=== PATIENT | male | born 1990 | race Caucasian/White ===

== ENCOUNTER → 2017-09-23 | Outpatient (CLI) | payer OTHER, MEDICAID ==
[2017-09-23 18:06] LABS: ALBUMIN 4.2 GM/DL (3.2-5.2); ALBUMIN/GLOBULIN RATIO 1.31 (1.00-1.93); ALKALINE PHOSPHATASE 55 U/L (45-117); ALT/SGPT 23 U/L (12-78); ANION GAP 8 MEQ/L (8-16); AST/SGOT 6 U/L (7-37); BILIRUBIN,TOTAL 0.7 MG/DL (0.2-1.0); BLOOD UREA NITROGEN 18 MG/DL (7-18); CALCIUM LEVEL 8.8 MG/DL (8.5-10.1); CARBON DIOXIDE LEVEL 29 MEQ/L (21-32); CHLORIDE LEVEL 104 MEQ/L (98-107); CHOLESTEROL LEVEL 138 MG/DL (<200); CHOLESTEROL RISK RATIO 5.307 (<5); CREATININE FOR GFR 0.94 MG/DL (0.70-1.30); GLOMERULAR FILTRATION RATE > 60.0 (>60); GLUCOSE, FASTING 84 MG/DL (70-100); HDL CHOLESTEROL 26 MG/DL (>40); LDL CHOLESTEROL 67.2 MG/DL (<100); NON-HDL-C 112 MG/DL; POTASSIUM SERUM 4.6 MEQ/L (3.5-5.1); SODIUM LEVEL 141 MEQ/L (136-145); TOTAL PROTEIN 7.4 GM/DL (6.4-8.2); TRIGLYCERIDES LEVEL 224 MG/DL (<150); VALPROIC ACID (DEPAKOTE) 78.1 UG/ML (50.0-100.0)
[2017-09-23 18:10] LABS: ESTIMATED AVERAGE GLUCOSE 91 MG/DL (60-110); HEMOGLOBIN A1c 4.8 %
== END ==
LOC: M WUC 08:43
DX: F28 Other psychotic disorder not due to a substance or known physiological condition (principal)
CPT/HCPCS: 80164

== ENCOUNTER 2017-10-27 12:36 | Outpatient (CLI) | payer OTHER, MEDICAID | END 2017-10-30 | LOC: M SLEEP HO 12:36 | DX: G47.10 Hypersomnia, unspecified (principal) | CPT/HCPCS: G0399 ==

== ENCOUNTER → 2018-06-18 | Outpatient (REF) | payer MEDICAID ==
[2018-06-18 17:21] LABS: BASO % 0.4 % (0.0-1.0); EOS # 0.1 10^3/uL (0.0-0.50); EOS % 1.3 % (0.0-3.0); HEMATOCRIT 42.9 % (42.0-52.0); HEMOGLOBIN 15.1 g/dl (13.5-17.5); LYMPH # 2.1 10^3/uL (1.5-6.5); LYMPH % 40.5 % (24.0-44.0); MEAN CORPUSCULAR HEMOGLOBIN 29.2 pg (27.0-33.0); MEAN CORPUSCULAR HGB CONC 35.2 g/dl (32.0-36.5); MEAN CORPUSCULAR VOLUME 82.8 fl (80.0-96.0); MONO # 0.4 10^3/uL (0.0-0.8); NEUTROPHILS # 2.6 10^3/uL (1.8-7.7); NEUTROPHILS % 49.6 % (36.0-66.0); PLATELET COUNT, AUTOMATED 173 10^3/uL (150-450); RED BLOOD COUNT 5.18 10^6/uL (4.30-6.10); WHITE BLOOD COUNT 5.3 10^3/uL (4.0-10.0)
[2018-06-18 17:46] LABS: FREE T4 1.04 NG/DL (0.76-1.46); THYROID STIMULATING HORMONE 1.1 uIU/ML (0.358-3.740)
[2018-06-18 17:47] LABS: TOTAL 25(OH) VITAMIN D 23.7 NG/ML (30.0-100.0)
== END ==
LOC: M SFHCPLAZ 14:34
PROVIDERS: ATTEND Family Medicine
DX: R53.82 Chronic fatigue, unspecified (principal)

== ENCOUNTER → 2018-07-12 | Outpatient (CLI) | payer MEDICAID ==
--- NOTE | 2018-07-17 10:25 | SLEEPCENT ---
DATE OF STUDY: 07/12/2018 ORDERED BY: GARIMA Pryor Nocturnal polysomnography was performed for evaluation of sleep physiology in this patient with a history of excessive somnolence and nonrestorative sleep. 8 hours and 10 minutes of data were reviewed. There were 421 minutes of sleep identified. Sleep latency was prolonged at 42 minutes. REM latency was mildly prolonged at 119 minutes. Sleep architecture was good with three REM cycles noted. Overall sleep efficiency was 87%. The electrocardiogram showed sinus rhythm throughout with an average heart rate of 46 beats per minute. Rate ranged 40-70 beats per minute. EEG showed essentially normal waveforms for awake and sleep. No focal events were seen. There were only four obstructive respiratory events identified of 10 seconds in duration or greater for an apnea-hypopnea index of 0.6. Snoring was noted and respiratory related arousals occurred 1.6 times per hour. Limb leads were quiet and oxygen saturations 90% plus. IMPRESSION: Normal nocturnal polysomnography with snoring. cc: Nikko Marie DO
== END ==
LOC: M SLEEP 20:21
PROVIDERS: ATTEND Nurse Practitioner Family
DX: R06.83 Snoring (principal)

== ENCOUNTER → 2018-07-24 | Outpatient (CLI) | payer MEDICAID | LOC: M WUC 09:27 | PROVIDERS: ATTEND Student in an Organized Health Care Education/Training Program | DX: Z13.21 Encounter for screening for nutritional disorder (principal) ==

== ENCOUNTER 2018-07-31 17:03 | Inpatient (IN) | payer MEDICAID ==
[~2018-07-31] VITALS: Ht 166.4 cm; Wt 81.8 kg
[2018-07-31] MEDS ORDERED: DEBR6.5S4 AS (17:36)
[2018-07-31] MEDS ORDERED: PRAZ2CAP PO (17:36)
[2018-07-31] MEDS ORDERED: LISI10TA4 PO (17:36)
[2018-07-31] MEDS ORDERED: RISP4TAB33 PO (17:36)
[2018-07-31] MEDS ORDERED: [UNRECOGNIZED DRUG - OTHER] (17:36)
[2018-07-31] MEDS ORDERED: D 1010004 PO (17:36)
[2018-07-31] MEDS ORDERED: DEPA250T32 PO (17:36)
[2018-07-31] MEDS ORDERED: PROZ20CA11 PO (17:54)
[2018-07-31 18:05] LABS: HEMATOCRIT 42.7 % (42.0-52.0); MEAN CORPUSCULAR HEMOGLOBIN 29.1 pg (27.0-33.0); MEAN CORPUSCULAR HGB CONC 35.1 g/dl (32.0-36.5); MEAN CORPUSCULAR VOLUME 82.9 fl (80.0-96.0); PLATELET COUNT, AUTOMATED 171 10^3/uL (150-450); RED BLOOD COUNT 5.15 10^6/uL (4.30-6.10); WHITE BLOOD COUNT 6.9 10^3/uL (4.0-10.0)
[2018-07-31 18:19] LABS: AMPHETAMINES LEVEL URINE NEGATIVE (NEGATIVE); BARBITURATES URINE NEGATIVE (NEGATIVE); BENZODIAZEPINES URINE NEGATIVE (NEGATIVE); CANNABINOIDS URINE NEGATIVE (NEGATIVE); COCAINE METABOLITE URINE NEGATIVE (NEGATIVE); METHADONE URINE NEGATIVE (NEGATIVE); OPIATES URINE NEGATIVE (NEGATIVE); PHENCYCLIDINE URINE NEGATIVE (NEGATIVE)
--- NOTE | 2018-07-31 18:20 | REP ---
Chest x-ray: Two views. History: Chest pain. Findings: A right-sided ventriculoperitoneal shunt catheter is seen coursing over the right anterior chest. The lungs are well inflated and clear. The pleural angles are sharp. Heart size is normal. No bony abnormalities seen. Impression: No active disease. Right STOGY ROLLER shunt tube seen. Electronically Signed by Korey Pandey MD 07/31/2018 06:12 P
[2018-07-31 18:31] LABS: ALBUMIN 4.4 GM/DL (3.2-5.2); ALT/SGPT 23 U/L (12-78); BILIRUBIN,DIRECT 0.2 MG/DL (0.0-0.2); BILIRUBIN,TOTAL 0.8 MG/DL (0.2-1.0); BLOOD UREA NITROGEN 19 MG/DL (7-18); CALCIUM LEVEL 8.8 MG/DL (8.5-10.1); CARBON DIOXIDE LEVEL 26 MEQ/L (21-32); CHLORIDE LEVEL 104 MEQ/L (98-107); CREATININE FOR GFR 1.01 MG/DL (0.70-1.30); ETHYL ALCOHOL (ETHANOL) < 0.003 % (0.000-0.010); GLOMERULAR FILTRATION RATE > 60.0 (>60); GLUCOSE, FASTING 86 MG/DL (70-100); SALICYLATE LEVEL < 1.7 MG/DL (5.0-30.0); SODIUM LEVEL 138 MEQ/L (136-145); TOTAL PROTEIN 7.1 GM/DL (6.4-8.2); VALPROIC ACID (DEPAKOTE) 41.5 UG/ML (50.0-100.0)
[2018-07-31 18:32] LABS: ACETAMINOPHEN LEVEL < 2.0 UG/ML (10.0-30.0)
--- NOTE | 2018-07-31 19:57 | ECGEPIP ---
Stationary ECG Study [facility] - ED Test Date: 2018-07-31 Pat Name: SUKHWINDER CALVILLO Department: Room: - Gender: M Water Plumber: : 1990 Requested By: ROBEL Rhodes Order Number: [id number] Reading MD: Emmanuel Cedillo Measurements Intervals [place] Rate: 62 P: 48 VT: 144 QRS: 59 QRSD: 89 T: 27 QT: 377 QTc: 384 Interpretive Statements SINUS RHYTHM Comparison tracing not on file Electronically Signed On 07-31-2018 19:57:37 EDT by Emmanuel Cedillo
[2018-07-31] MEDS ORDERED: DEPA1TAB3 PO (20:44)
[2018-07-31] MEDS ORDERED: VITS42.53 TOP (20:44)
[2018-07-31] MEDS ORDERED: ACETAMINOPHEN TAB 650MG DOSE (2X325MG) PO PRN (20:45)
[2018-07-31] MEDS ORDERED: MOM 30ML SUSPENSION UDC PO PRN (20:45)
[2018-07-31] MEDS ORDERED: traZODone 50 MG TAB PO PRN (20:45)
[2018-07-31] MEDS ORDERED: MAALOX 30 ML SUSP *UDC PO PRN (20:45)
[2018-07-31] MEDS ORDERED: hydrOXYzine 25 MG TAB PO PRN (20:45)
[2018-07-31] MEDS ORDERED: DIVALPROEX 250MG *ER* TAB PO SCH (21:00)
[2018-07-31 22:15] VITALS: BP 113/78
[2018-08-01 06:59] VITALS: BP 108/66
[2018-08-01] MEDS ORDERED: DIVALPROEX 250 MG TAB PO SCH (09:00)
--- NOTE | 2018-08-01 11:30 | HPEPDOC ---
General Date of Admission July 31, 2018 at 20:36 Primary Care Physician: KRISTINE OBRIEN DO Attending Physician: JILLIAN MARQUEZ MD Chief Complaint The patient is a 27-year-old male admitted with a reason for visit of Unspecified Depressive Disorder and suicidality. Source: Patient, EMS notes reviewed Exam Limitations: Mild cognitive slowing History of Present Illness Patient was seen in a medical appointment in the office on 07/31/18 and complained of increased depression without hope for resolution. Patient disclosed that he did demonstrate some SI. He was evaluated by social media campaign manager in the office who recommended the patient presented to the emergency department for further evaluation. Patient states that he has suicidal ideation with a plan to have somewhat hard to tie him and leave him to . He also Has HI toward his material handling warehouse supervisor with the plan to slit her throat. Patient does have a history of prior suicidal attempts when he was in middle school. Auditory hallucinations reported was instructed patient to kill himself and) kill others. Patient admitted to [facility] under the care of Dr. Valenzuela for further evaluation and management. Home Medications Scheduled Cholecalciferol (Vitamin D3) (Vitamin D3) 1,000 Unit Capsule, 1,000 UNIT PO DAILY, (Reported) Divalproex Sodium (Depakote) 250 Mg Tablet.dr, 250 MG PO QHS, (Reported) TAKE IN ADDITION TO 500MG TO EQUAL 750 Divalproex Sodium (Depakote) 500 Mg Tablet.dr, 500 MG PO QHS, (Reported) IN ADDITION TO 250MG TABLET TO EQUAL 750MG Fluoxetine HCl (Prozac) 20 Mg Capsule, 20 MG PO DAILY, (Reported) Lisinopril (Lisinopril) 10 Mg Tablet, 10 MG PO DAILY, (Reported) Prazosin Hcl (Prazosin HCl) 2 Mg Capsule, 2 MG PO QHS, (Reported) Risperidone (Risperdal) 4 Mg Tablet, 8 MG PO QHS, (Reported) Vits A and D/White Pet/Lanolin (A and D Ointment) 42.5 Gm Oint...g., 1 APLCT TOP DAILY, (Reported) APPLIES TO BUTTOCKS Allergies Coded Allergies: meperidine (Verified Allergy, Intermediate, hives, 07/31/18) morphine (Verified Allergy, Intermediate, hives, 07/31/18) Past Medical History Medical History Cerebral palsy with a ERISA ATTORNEY shunt and frontal lobe brain bilateral AFOs 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 Review of Systems Constitutional: Denies: Chills, Fever, Malaise, Weakness, Fatigue Eyes: Reports: Vision change (Utilizes reading glasses); Denies: Pain ENT: Denies: Head Aches, Ear Pain, Dysphagia, Sore Throat Skin: Denies: Rash, Lesions Pulmonary: Denies: Dyspnea, Cough, Pleuritic Chest Pain Cardiovascular: Denies: Chest Pain, Palpitations, Edema Gastrointestinal: Denies: Nausea, Vomiting, Abdominal Pain, Diarrhea, Co nstipation Genitourinary: Denies: Dysuria, Frequency, Incontinence Endocrine: Denies: Polydipsia, Polyphagia Musculoskeletal: Denies: Neck Pain, Back Pain, Shoulder Pain, Arm Pain, Hand Pain, Leg Pain, Foot Pain, Joint Pain Neurological: Denies: Weakness, Numbness Psych: Denies: Mood Normal Physical Examination General Exam: Positive: Alert, Cooperative, No Acute Distress Eye Exam: Positive: PERRLA, EOMI ENT Exam: Positive: Atraumatic, Mucous membr. moist/pink, Pharynx Normal Neck Exam: Positive: Supple; Negative: JVD, thyromegaly Chest Exam: Positive: Clear to auscultation, Normal air movement Heart Exam: Positive: Rate Normal, Regular Rhythm Abdomen Exam: Positive: Normal bowel sounds, Soft; Negative: Tenderness, Mass Extremity Exam: Negative: Clubbing, Cyanosis Skin Exam: Negative: Rash Neuro Exam: Positive: Normal Speech Psych Exam: Positive: Oriented x 3 Vital Signs Vital Signs Date Time Temp Pulse Resp B/P (MAP) Pulse Ox O2 Delivery O2 Flow Rate FiO2 08/01/18 06:59 98.0 61 14 108/66 (80) 07/31/18 22:15 96 Laboratory Data Labs 24H Laboratory Tests 2 07/31/18 17:45: Nucleated Red Blood Cells % (auto) 0.0, Anion Gap 8, Glomerular Filtration Rate > 60.0, Calcium Level 8.8, Aspartate Amino Transf (AST/SGOT) 10, Alanine Aminotransferase (ALT/SGPT) 23, Alkaline Phosphatase 41L, Total Bilirubin 0.8, Direct Bilirubin 0.2, Total Protein 7.1, Albumin 4.4, Albumin/Globulin Ratio 1.63, Thyroid Stimulating Hormone (TSH) 0.820, Salicylates Level < 1.7L, Urine Amphetamines Screen NEGATIVE, Urine Benzodiazepines Screen NEGATIVE, Urine Opiates Screen NEGATIVE, Urine Methadone Screen NEGATIVE, Acetaminophen Level < 2.0L, Urine Barbiturates Screen NEGATIVE, Valproic Acid (Depakene) Level 41.5L, Urine Phencyclidine Screen NEGATIVE, Urine Cocaine Metabolite Screen NEGATIVE, Urine Cannabinoids Screen NEGATIVE, Ethyl Alcohol Level < 0.003 CBC/BMP Laboratory Tests 07/31/18 17:45 Red Blood Count 5.15, Mean Corpuscular Volume 82.9, Mean Corpuscular Hemoglobin 29.1, Mean Corpuscular Hemoglobin Concent 35.1, Red Cell Distribution Width 12.0 Assessment/Plan Patient is a 27 year old male, history of cerebral palsy, resident of [facility], who presented to the ED with increasing SI with plan, HI and AH. Patient admitted to [facility] for further evaluation and management. Plan Plan Depression with HI/SI -Managed per psychiatry History of Head aches - Tylenol 650 mg PRN Reflux -Mylanta PRN Constipation -Magnesium Hydroxide PRN Attending Note Attending Note I personally performed a history and physical examination of the patient and discussed his management with the resident. I reviewed the resident's note and agree with the documented findings and plan of care. JOSÉ MIGUEL CRANE DO August 01, 2018 11:30 JILLIAN MARQUEZ MD August 02, 2018 13:14
--- NOTE | 2018-08-01 12:26 | MHHPEPDOC ---
General Date Of Admission: July 31, 2018 Legal Status: 9.39 Chief Complaint "I want to be hog tied and left for ." History of Present Illness HISTORY OF THE PRESENT ILLNESS: Patient is a 27 -year-old , male, with a history of bipolar d/o with psychosis and cerebral palsy who was sent to ED after seen by PCP and SW for med appt endorsing depression and SI with plan to be "hog tied and left for ." Pt also endorsed this when in ED to staff ([facility] staff present) and also that he had HI toward his warehouse loader stating he wanted to slit her throat. Per ED, [facility] staff told them that a staff member at [facility] was recently fired after telling the patient he needed to be hog tied. Pt also endorse in the ED AH to kill himself and rape/kill others. Per ED, indicated that he wanted out of [facility] due to lack of freedom and b/c he wants have sex with the staff. [facility] staff reported to ED that pt has been compliant on his medications although depakote level low in ED at 41.5. Psychiatric Review of Systems Depression (2 or more weeks): depressed mood, insomnia/hypersomnia (insomnia), feelings of worthlesness, difficulty concentrating, suicidal thoughts Kylah (4 or more days of): denies Psychosis: auditory hallucination (command in nature), delusions PTSD: denies Anxiety: situational anxiety, stressor related anxiety Anxiety/ 6 months or more of: restlessness, keyed up, difficulty concentrating, irritability, sleep disturbance Past Psychiatric History Previous Psychiatric Diagnosis: bipolar d/o with psychosis Previous Psychiatric Admissions: [facility] in past for psychosis Suicide Attempts: one in middle school, pt unable to remember what occurred Psychiatric Follow-up: [facility] Psychiatric medications: risperidone, depakote, prazosin, prozac Past Medical History Medical Problems spastic bladder, incontinence, cerebral palsy Head Injury: Yes Seizures: Yes (cerebral palsy) Hospitalizations: Yes Surgeries: Yes (OPTICIAN APPRENTICE shunt) Family Medical/Psychiatric HX Medical Problems noncontributory Psychiatric Disorders: No Addiction: No Suicide Attemps/Completions: No Addiction History denies Social History Childhood: Born and raised [place], 2 parent home. Speaks to parents regularly on the phone and their supportive Abuse/Trauma:denies Current Living Situation: [facility] Education: high school grad in special education Employment: disability Social Support: [facility] staff and parents Legal: denies Marital: single, never , no kids Mental Status Examination General Appearance: well groomed, appears stated age, hospital scubs/clothing, other (laying in bed comfortably, horizontal b/l eye nystagmus) Build: average Demeanor: average, other (pleasant, slightly childlike) Eye Contact: other (horizontal b/l eye nystagmus) Activity: average Behavior: cooperative Speech: clear, spontaneous, reg/rate,rhythm,volume Mood: depressed Mood ok Affect: constricted, appropriate, congruent Thought Process: logical/linear, concrete, depressed, other (negative cognitive distortions) Thought Content (Delusions): denies SI, HI, AVH Thought Content (Other): none reported Thought Content (Aggressive): none reported Perception (Hallucinations): none reported Cognition (Impairment of): none reported Cognition(Intelligence Est.): borderline Oriented: Awake, Alert, Oriented times three Insight: fair Judgment: Fair Psychosis: Denies Diagnoses bipolar 1 d/o mre depressed with psychosis Cerebral Palsy A-FIB/CHADSVASC A-FIB History Current/History of A-Fib/PAF?: No Current Oral Anticoagulant The: No Treatment Treatment ordered: NONE Reason Anticoagulant not given: Not indicated/[id number] Assessment Pt seen in his room due to difficulty ambulating secondary to CP and states he's been having SI with desire to be hog tied and left for after [facility] staff told him he should be. States it isn't as bad today. States he isn't as depressed. Able to make a joke asking for a Whopper when asked if he needed anything else and laughed appropriately. Denies AH or CAH and states that it was more a thought he had in his head rather than a voice out of anger with the staff member that is now fired. Denies HI today. States his medications are beneficial and he's agreeable to increasing his prozac and depakote for mood. Hopes to be able to live with his parents upon d/c and advised him that they'd have to agree to that if that were to happen. Hopes they visit. Will see PT today to evaluated his ability to ambulate and provide him with a wheel chair as he would like to go to the groups and the lounge. Admits he needs help transferring from a wheelchair to the toilet when asked. Feels safe here. Initial Treatment Plan 1. Patient was admitted on a 9.39 status. 2. Complete history was obtained. 3. With patients permission, family will be contacted and database will be expanded. 4. Patients medication regimen will be reviewed and changed accordingly. 5. Patient will be provided with protected environment. 6. Patient will be treated with individual, group, and milieu therapies. 7. Patient will receive supportive psych-education. 8. Discharge planning will commence immediately. 9. Outpatient follow-up treatment will be strongly recommended. 10. The initial treatment plan will focus initially on: * Depression. * Risk for suicide. * Substance abuse. 11. restart risperidone 8mg qhs and prazosin 2mg qhs. Increase prozac to 40mg daily and depakote to 1000mg qhs ESTIMATED LENGTH OF STAY: 5-7 DAYS. TIME SPENT COUNSELING AND COORDINATING INITIAL CARE: 60 minutes. Vital Signs Vital Signs Date Time Temp Pulse Resp B/P (MAP) Pulse Ox O2 Delivery O2 Flow Rate FiO2 08/01/18 06:59 98.0 61 14 108/66 (80) 07/31/18 22:15 96 Laboratory Data 24H Labs Laboratory Tests 2 07/31/18 17:45: Nucleated Red Blood Cells % (auto) 0.0, Anion Gap 8, Glomerular Filtration Rate > 60.0, Calcium Level 8.8, Aspartate Amino Transf (AST/SGOT) 10, Alanine Aminotransferase (ALT/SGPT) 23, Alkaline Phosphatase 41L, Total Bilirubin 0.8, Direct Bilirubin 0.2, Total Protein 7.1, Albumin 4.4, Albumin/Globulin Ratio 1.63, Thyroid Stimulating Hormone (TSH) 0.820, Salicylates Level < 1.7L, Urine Amphetamines Screen NEGATIVE, Urine Benzodiazepines Screen NEGATIVE, Urine Opiates Screen NEGATIVE, Urine Methadone Screen NEGATIVE, Acetaminophen Level < 2.0L, Urine Barbiturates Screen NEGATIVE, Valproic Acid (Depakene) Level 41.5L, Urine Phencyclidine Screen NEGATIVE, Urine Cocaine Metabolite Screen NEGATIVE, Urine Cannabinoids Screen NEGATIVE, Ethyl Alcohol Level < 0.003 CBC/BMP Laboratory Tests 07/31/18 17:45 Red Blood Count 5.15, Mean Corpuscular Volume 82.9, Mean Corpuscular Hemoglobin 29.1, Mean Corpuscular Hemoglobin Concent 35.1, Red Cell Distribution Width 12.0 Medications Scheduled Cholecalciferol (Vitamin D3) (Vitamin D3) 1,000 Unit Capsule, 1,000 UNIT PO DAILY, (Reported) Divalproex Sodium (Depakote) 250 Mg Tablet.dr, 250 MG PO QHS, (Reported) TAKE IN ADDITION TO 500MG TO EQUAL 750 Divalproex Sodium (Depakote) 500 Mg Tablet.dr, 500 MG PO QHS, (Reported) IN ADDITION TO 250MG TABLET TO EQUAL 750MG Fluoxetine HCl (Prozac) 20 Mg Capsule, 20 MG PO DAILY, (Reported) Lisinopril (Lisinopril) 10 Mg Tablet, 10 MG PO DAILY, (Reported) Prazosin Hcl (Prazosin HCl) 2 Mg Capsule, 2 MG PO QHS, (Reported) Risperidone (Risperdal) 4 Mg Tablet, 8 MG PO QHS, (Reported) Vits A and D/White Pet/Lanolin (A and D Ointment) 42.5 Gm Oint...g., 1 APLCT TOP DAILY, (Reported) APPLIES TO BUTTOCKS Allergies Coded Allergies: meperidine (Verified Allergy, Intermediate, hives, 07/31/18) morphine (Verified Allergy, Intermediate, hives, 07/31/18) JOHANNA JANE DO August 01, 2018 12:26 pm
[2018-08-01 12:59] VITALS: BP 108/66
[2018-08-01] MEDS ORDERED: FLUoxetine 20 MG CAP PO ONE (13:00)
[2018-08-01] MEDS: VITAMIN D 1,000 INTERNATIONAL UNITS TABLET PO SCH (14:07)
[2018-08-01] MEDS: LISINOPRIL 10 MG TAB PO SCH (14:15)
[2018-08-01] MEDS: VITAMIN A & D OINTMENT 60 GM TOP SCH (17:40)
[2018-08-01 18:37] VITALS: BP 133/78
[2018-08-01] MEDS: risperiDONE 2 MG TAB PO SCH (22:31)
[2018-08-01] MEDS: PRAZOSIN 1 MG CAP PO SCH (22:31)
[2018-08-01] MEDS: DIVALPROEX 500 MG TAB PO SCH (22:31)
[2018-08-02 06:36] VITALS: BP 123/60
[2018-08-02] MEDS: VITAMIN A & D OINTMENT 60 GM TOP SCH (09:00)
--- NOTE | 2018-08-02 09:30 | MHIPNPDOC ---
[facility] Progress Note Progress Note DATE OF SERVICE: 08/02/18 HISTORY: Patient is a 27 -year-old , male, with a history of bipolar d/o with psychosis and cerebral palsy who was sent to ED after seen by PCP and SW for med appt endorsing depression and SI with plan to be "hog tied and left for ." Pt also endorsed this when in ED to staff ([facility] staff present) and also that he had HI toward his vat house supervisor stating he wanted to slit her throat. Per ED, [facility] staff told them that a staff member at [facility] was recently fired after telling the patient he needed to be hog tied. Pt also endorse in the ED AH to kill himself and rape/kill others. Per ED, indicated that he wanted out of [facility] due to lack of freedom and b/c he wants have sex with the staff. [facility] staff reported to ED that pt has been compliant on his medications although depakote level low in ED at 41.5. VITAL SIGNS: See below. NEW TEST RESULTS: See below. CURRENT MEDICATIONS: See below. MENTAL STATUS EXAMINATION: General Appearance: well groomed, appears stated age, hospital scrubs/clothing, other (laying in bed comfortably, horizontal b/l eye nystagmus) Build: average Demeanor: average, other (pleasant, cognitively 13-14y/o) Eye Contact: other (horizontal b/l eye nystagmus) Activity: average Behavior: cooperative Speech: clear, spontaneous, reg/rate,rhythm,volume Mood: less depressed Mood ok Affect: less constricted, appropriate, congruent Thought Process: logical/linear, concrete, improved negative cognitive distortions, future oriented toward wanting his own apt thru [facility] Thought Content (Delusions): denies SI, HI, AVH, sexually preoccupied similar to young teenage boy Thought Content (Other): none reported Thought Content (Aggressive): none reported Perception (Hallucinations): none reported Cognition (Impairment of): none reported Cognition(Intelligence Est.): borderline Oriented: Awake, Alert, Oriented times three Insight: limited Judgment: limited Psychosis: Denies DIAGNOSES: bipolar 1 d/o mre depressed with psychosis Intellectual Disability - mild Cerebral Palsy ASSESSMENT:Pt seen in his room due to difficulty ambulating secondary to CP and states doing better today as denies SI/HI, hallucinations, command hallucinations. Endorses some fatigue this am after depakote increased last night and will monitor for improvement as pt starts to tolerate it better. States he very depressed. He's future oriented as asked for his own apt when he returns to [facility] and advised that he must work that out with them and it may not happen right away. States he'd be ok with waiting. per nursing staff, pt is sexually preoccupied most like that of a young teenage boy and appears cognit ively to function between 13-14y/o. Is using his wheelchair he was provided to attend groups and encouraged to do so again today. Denies SI/HI, hallucinations, delusions. Feels safe here. MANAGEMENT PLAN: continue plan Medications: risperidone 8mg qhs prazosin 2mg qhs prozac to 40mg daily depakote to 1000mg qhs TIME SPENT: 30 minutes. Vital Signs Vital Signs Date Time Temp Pulse Resp B/P (MAP) Pulse Ox O2 Delivery O2 Flow Rate FiO2 08/02/18 06:36 98.4 65 14 123/60 (81) 07/31/18 22:15 96 Current Medications Current Medications Acetaminophen (Tylenol Tab) 650 mg Q6HP PRN PO HEADACHE or DISCOMFORT; Start 07/31/18 at 20:45 Al Hydrox/Mg Hydrox/Simethicone (Mylanta) 30 ml Q4HP PRN PO HEARTBURN/INDIGESTION; Start 07/31/18 at 20:45 Divalproex Sodium (Depakote Er) 750 mg DAILY@2100 PO Last administered on 07/31/18at 23:13; Start 07/31/18 at 21:00; Stop 08/01/18 at 12:28; Status DC Divalproex Sodium (Depakote) 750 mg DAILY PO ; Start 08/01/18 at 09:00; Status Cancel Divalproex Sodium (Depakote) 1,000 mg QHS PO Last administered on 08/01/18at 22:31; Start 08/01/18 at 21:00 Fluoxetine HCl (PROzac) 40 mg DAILY PO ; Start 08/02/18 at 09:00 Home Med (Med Rec Complete!) ASDIRECTED XX ; Start 07/31/18 at 20:45; Stop 07/31/18 at 20:47; Status DC Hydroxyzine HCl (Atarax) 25 mg Q6HP PRN PO Anxiety; Start 07/31/18 at 20:45 Lisinopril (Prinivil) 10 mg DAILY PO Last administered on 08/01/18at 14:15; Start 08/01/18 at 09:00 Magnesium Hydroxide (Milk Of Magnesia) 30 ml DAILYPRN PRN PO CONSTIPATION; Start 07/31/18 at 20:45 Prazosin HCl (Minipress) 2 mg QHS PO Last administered on 08/01/18at 22:31; Start 08/01/18 at 21:00 Risperidone (RisperDAL) 8 mg QHS PO Last administered on 08/01/18at 22:31; Start 08/01/18 at 21:00 Trazodone HCl (Desyrel) 50 mg QHSP PRN PO INSOMNIA; Start 07/31/18 at 20:45 Vitamin A/Vitamin D (Vitamin A & D Ointment) 1 dose DAILY TOP ; Start 08/01/18 at 09:00 Vitamin D (Vitamin D) 1,000 units DAILY PO Last administered on 08/01/18at 14:07; Start 08/01/18 at 09:00 Allergies Coded Allergies: meperidine (Verified Allergy, Intermediate, hives, 07/31/18) morphine (Verified Allergy, Intermediate, hives, 07/31/18) A-FIB/CHADSVASC A-FIB History Current/History of A-Fib/PAF?: No Current Oral Anticoagulant The: No Treatment Treatment ordered: NONE Reason Anticoagulant not given: Not indicated/[id number] JOHANNA JANE DO August 02, 2018 9:30 am
[2018-08-02] MEDS: LISINOPRIL 10 MG TAB PO SCH (09:56)
[2018-08-02] MEDS: FLUoxetine 20 MG CAP PO SCH (09:56)
[2018-08-02] MEDS: VITAMIN D 1,000 INTERNATIONAL UNITS TABLET PO SCH (09:56)
[2018-08-02 18:00] VITALS: BP 144/73
[2018-08-02] MEDS: DIVALPROEX 500 MG TAB PO SCH (21:32)
[2018-08-02] MEDS: risperiDONE 2 MG TAB PO SCH (21:32)
[2018-08-02] MEDS: PRAZOSIN 1 MG CAP PO SCH (21:35)
[2018-08-03 06:46] VITALS: BP 141/76
[2018-08-03] MEDS ORDERED: FLUO20CA19 PO (08:44)
[2018-08-03] MEDS ORDERED: PRAZ2CAP PO (08:44)
[2018-08-03] MEDS ORDERED: RISP4TAB33 PO (08:44)
[2018-08-03] MEDS ORDERED: DEPA1TAB3 PO (08:44)
--- NOTE | 2018-08-03 08:45 | MHDSPDOC ---
[facility] Discharge Summary Discharge Summary DATE OF ADMISSION: July 31, 2018 at 8:36 pm DATE OF DISCHARGE: August 03, 2018 DISCHARGE DIAGNOSES: bipolar 1 d/o mre depressed with psychosis Intellectual Disability - mild Cerebral Palsy REASON FOR ADMISSION: Patient is a 27 -year-old , male, with a history of bipolar d/o with psychosis and cerebral palsy who was sent to ED after seen by PCP and SW for med appt endorsing depression and SI with plan to be "hog tied and left for ." Pt also endorsed this when in ED to staff ([facility] staff present) and also that he had HI toward his senior data warehouse developer stating he wanted to slit her throat. Per ED, [facility] staff told them that a staff member at [facility] was recently fired after telling the patient he needed to be hog tied. Pt also endorse in the ED AH to kill himself and rape/kill others. Per ED, indicated that he wanted out of [facility] due to lack of freedom and b/c he wants have sex with the staff. [facility] staff reported to ED that pt has been compliant on his medications although depakote level low in ED at 41.5. CONSULTANTS INVOLVED: none TREATMENT AND PROGRESS ON THE UNIT : Pt was admitted to [facility], seen for psychiatric assessment and restarted on his outpatient medication Depakote in creased to 1000mg nightly (depakote level low on admission), risperidone 8mg nightly, prozac increased to 40mg daily for mood, and prazosin 2mg nightly. He was provided trazodone 50mg qhs prn insomnia. Pt found his medications beneficial and tolerated them well. He was provided a wheelchair on the unit so he could attended groups daily during his stay. His symptoms improved with treatment. On day of discharge he denied depression, anxiety, insomnia, SI/HI, hallucinations, delusions. He was discharged back to [facility] with follow-up at [facility]. He felt safe for discharge. DISCHARGE ASSESSMENT: Pt seen in his room due to difficulty ambulating secondary to CP and states doing better today as denies SI/HI, hallucinations, command hallucinations. States he feels good and is looking forward to returning home to [facility]. He states is tolerating his medication and finding it helpful when asked. He's future oriented as asked for his own apt when he returns to [facility] and advised that he must work that out with them and it may not happen right away. States he'd be ok with waiting. He behaved appropriately during his stay and is very pleasant and cooperative. He is using his wheelchair he was provided to attend groups. Denies depression, anxiety, insomnia, SI/HI, hallucinations, delusions. Feels safe to d/c back to [facility] with [facility] staff. MENTAL STATUS EXAMINATION ON DISCHARGE: General Appearance: well groomed, appears stated age, hospital scrubs/clothing, other (laying in bed comfortably, horizontal b/l eye nystagmus) Build: average Demeanor: average, other (pleasant, cognitively 13-14y/o) Eye Contact: other (horizontal b/l eye nystagmus) Activity: average Behavior: cooperative Speech: clear, spontaneous, reg/rate,rhythm,volume Mood: full, euthymic, bright Mood good Affect: euthymic, full, appropriate, congruent Thought Process: logical/linear, concrete, future oriented toward wanting his own apt thru [facility] Thought Content (Delusions): denies SI, HI, AVH Thought Content (Other): none reported Thought Content (Aggressive): none reported Perception (Hallucinations): none reported Cognition (Impairment of): none reported Cognition(Intelligence Est.): borderline Oriented: Awake, Alert, Oriented times three Insight: limited Judgment: limited Psychosis: Denies MEDICATIONS ON DISCHARGE: risperidone 8mg qhs prazosin 2mg qhs prozac to 40mg daily depakote to 1000mg qhs PLAN/FOLLOWUP ARRANGEMENTS: D/c back to [facility] with follow-up at [facility]. The amount of time spent in the coordination of care for this patient was approximately 30 minutes. Vital Signs/I&Os Vital Signs Date Time Temp Pulse Resp B/P (MAP) Pulse Ox O2 Delivery O2 Flow Rate FiO2 08/03/18 06:46 97.6 76 16 141/76 (97) 07/31/18 22:15 96 Medications Scheduled Cholecalciferol (Vitamin D3) (Vitamin D3) 1,000 Unit Capsule, 1,000 UNIT PO DAILY, (Reported) Divalproex Sodium (Depakote) 250 Mg Tablet.dr, 250 MG PO QHS, (Reported) TAKE IN ADDITION TO 500MG TO EQUAL 750 Divalproex Sodium (Depakote) 500 Mg Tablet.dr, 500 MG PO QHS, (Reported) IN ADDITION TO 250MG TABLET TO EQUAL 750MG Fluoxetine HCl (Prozac) 20 Mg Capsule, 20 MG PO DAILY, (Reported) Lisinopril (Lisinopril) 10 Mg Tablet, 10 MG PO DAILY, (Reported) Prazosin Hcl (Prazosin HCl) 2 Mg Capsule, 2 MG PO QHS, (Reported) Risperidone (Risperdal) 4 Mg Tablet, 8 MG PO QHS, (Reported) Vits A and D/White Pet/Lanolin (A and D Ointment) 42.5 Gm Oint...g., 1 APLCT TOP DAILY, (Reported) APPLIES TO BUTTOCKS Allergies Coded Allergies: meperidine (Verified Allergy, Intermediate, hives, 07/31/18) morphine (Verified Allergy, Intermediate, hives, 07/31/18) JOHANNA JANE DO August 03, 2018 8:45 am
[2018-08-03 09:03] VITALS: BP 141/76
[2018-08-03] MEDS: LISINOPRIL 10 MG TAB PO SCH (09:03)
[2018-08-03] MEDS: FLUoxetine 20 MG CAP PO SCH (09:03)
[2018-08-03] MEDS: VITAMIN A & D OINTMENT 60 GM TOP SCH (09:03)
[2018-08-03] MEDS: VITAMIN D 1,000 INTERNATIONAL UNITS TABLET PO SCH (09:03)
== END 2018-08-03 12:30 | disposition home or self-care (01) | DRG 753 ==
LOC: M ED 17:03 → M ED INP 20:36 → M PSY 21:45
PROVIDERS: ADMIT Psychiatry & Neurology Psychiatry; ATTEND Psychiatry & Neurology Psychiatry
DX: F31.5 Bipolar disorder, current episode depressed, severe, with psychotic features (principal); F70 Mild intellectual disabilities; N32.89 Other specified disorders of bladder; G80.1 Spastic diplegic cerebral palsy; H55.01 Congenital nystagmus; R32 Unspecified urinary incontinence; I10 Essential (primary) hypertension; K59.00 Constipation, unspecified; Z98.2 Presence of cerebrospinal fluid drainage device; Z87.820 Personal history of traumatic brain injury; Z88.8 Allergy status to other drugs, medicaments and biological substances; Z88.5 Allergy status to narcotic agent; Z79.899 Other long term (current) drug therapy

== ENCOUNTER → 2018-08-25 | Outpatient (CLI) | payer MEDICAID ==
[~2018-08-25] MED LIST: D 1010004 PO; DEBR6.5S4 AS; DEPA1TAB3 PO; DEPA250T32 PO; FLUO20CA19 PO; LISI10TA4 PO; PRAZ2CAP PO; PROZ20CA11 PO; RISP4TAB33 PO; VITS42.53 TOP; [UNRECOGNIZED DRUG - OTHER]
[2018-08-25 18:25] LABS: ALBUMIN 4.2 GM/DL (3.2-5.2); ALT/SGPT 26 U/L (12-78); BILIRUBIN,TOTAL 0.8 MG/DL (0.2-1.0); BLOOD UREA NITROGEN 12 MG/DL (7-18); CALCIUM LEVEL 8.6 MG/DL (8.5-10.1); CARBON DIOXIDE LEVEL 27 MEQ/L (21-32); CHLORIDE LEVEL 106 MEQ/L (98-107); CREATININE FOR GFR 0.94 MG/DL (0.70-1.30); GLOMERULAR FILTRATION RATE > 60.0 (>60); GLUCOSE, FASTING 88 MG/DL (70-100); POTASSIUM SERUM 4.3 MEQ/L (3.5-5.1); SODIUM LEVEL 140 MEQ/L (136-145); TOTAL PROTEIN 7.5 GM/DL (6.4-8.2); VALPROIC ACID (DEPAKOTE) 70.3 UG/ML (50.0-100.0)
== END ==
LOC: M WUC 10:28
PROVIDERS: ATTEND Student in an Organized Health Care Education/Training Program
DX: G80.1 Spastic diplegic cerebral palsy (principal)

== ENCOUNTER → 2018-09-23 | Outpatient (CLI) | payer MEDICAID ==
[2018-09-23 18:03] LABS: CHOLESTEROL RISK RATIO 4.689 (<5)
== END ==
LOC: M WUC 08:53
PROVIDERS: ATTEND Student in an Organized Health Care Education/Training Program
DX: Z13.220 Encounter for screening for lipoid disorders (principal)

== ENCOUNTER → 2018-11-16 | Outpatient (CLI) | payer MEDICAID ==
[2018-11-16 11:41] LABS: HEMOGLOBIN A1c 5.2 %
== END ==
LOC: M WUC 09:45
PROVIDERS: ATTEND Nurse Practitioner Psychiatric/Mental Health
DX: F28 Other psychotic disorder not due to a substance or known physiological condition (principal); Z79.899 Other long term (current) drug therapy

== ENCOUNTER → 2019-02-27 | Outpatient (CLI) | payer MEDICAID, OTHER | LOC: M WUC 09:37 | PROVIDERS: ATTEND Nurse Practitioner Psychiatric/Mental Health | DX: Z79.899 Other long term (current) drug therapy (principal) ==

== ENCOUNTER → 2019-03-06 | Outpatient (CLI) | payer OTHER, MEDICAID ==
[2019-03-07 03:17] LABS: HEMOGLOBIN A1c 5.1 %
== END ==
LOC: M WUC 11:42
PROVIDERS: ATTEND Student in an Organized Health Care Education/Training Program
DX: Z13.1 Encounter for screening for diabetes mellitus (principal)

== ENCOUNTER → 2019-03-06 | Outpatient (REF) | payer OTHER, MEDICAID | LOC: M SFHCPLAZ 11:12 | PROVIDERS: ATTEND Family Medicine | DX: Z13.1 Encounter for screening for diabetes mellitus (principal) ==

== ENCOUNTER → 2019-08-23 | Outpatient (CLI) | payer OTHER, MEDICAID ==
[~2019-08-23] MED LIST changes: -FLUO20CA19 PO; +FLUO20CA22 PO
[2019-08-23 09:47] LABS: HEMATOCRIT 43.8 % (42.0-52.0); HEMOGLOBIN 15.3 g/dl (13.5-17.5); MEAN CORPUSCULAR HEMOGLOBIN 29.1 pg (27.0-33.0); MEAN CORPUSCULAR HGB CONC 34.9 g/dl (32.0-36.5); MEAN CORPUSCULAR VOLUME 83.3 fl (80.0-96.0); PLATELET COUNT, AUTOMATED 157 10^3/uL (150-450); RED BLOOD COUNT 5.26 10^6/uL (4.30-6.10); WHITE BLOOD COUNT 3.8 10^3/uL (4.0-10.0)
[2019-08-23 11:02] LABS: ALBUMIN 4.1 GM/DL (3.2-5.2); ALT/SGPT 34 U/L (12-78); BILIRUBIN,TOTAL 0.9 MG/DL (0.2-1.0); BLOOD UREA NITROGEN 15 MG/DL (7-18); CALCIUM LEVEL 8.8 MG/DL (8.5-10.1); CARBON DIOXIDE LEVEL 24 MEQ/L (21-32); CHLORIDE LEVEL 107 MEQ/L (98-107); CHOLESTEROL LEVEL 156 MG/DL (<200); CHOLESTEROL RISK RATIO 5.777 (<5); CREATININE FOR GFR 0.96 MG/DL (0.70-1.30); GLOMERULAR FILTRATION RATE > 60.0 (>60); GLUCOSE, FASTING 84 MG/DL (70-100); HDL CHOLESTEROL 27 MG/DL (>40); LDL CHOLESTEROL 95 MG/DL (<100); NON-HDL-C 129 MG/DL; POTASSIUM SERUM 4.1 MEQ/L (3.5-5.1); SODIUM LEVEL 139 MEQ/L (136-145); TOTAL PROTEIN 6.9 GM/DL (6.4-8.2); TRIGLYCERIDES LEVEL 168 MG/DL (<150); VALPROIC ACID (DEPAKOTE) 76.7 UG/ML (50.0-100.0)
== END ==
LOC: M WUC 08:41
PROVIDERS: ATTEND Student in an Organized Health Care Education/Training Program
DX: F31.32 Bipolar disorder, current episode depressed, moderate (principal); F10.10 Alcohol abuse, uncomplicated

== ENCOUNTER → 2020-04-10 | Outpatient (CLI) | payer OTHER, MEDICAID ==
[~2020-04-10] MED LIST changes: +D31000TA2 PO; +FLUO40CA PO; +LISI10TA22 PO; -LISI10TA4 PO; +RISP-11 PO
[2020-04-10 11:34] LABS: BASO % 0.2 % (0.0-1.0); EOS % 0.9 % (0.0-3.0); HEMATOCRIT 47.4 % (42.0-52.0); LYMPH # 1.9 10^3/uL (1.5-5.0); MEAN CORPUSCULAR HEMOGLOBIN 29.5 pg (27.0-33.0); MEAN CORPUSCULAR HGB CONC 33.8 g/dl (32.0-36.5); MEAN CORPUSCULAR VOLUME 87.5 fl (80.0-96.0); MONO # 0.4 10^3/uL (0.0-0.8); NEUTROPHILS # 1.9 10^3/uL (1.5-8.5); NEUTROPHILS % 44.7 % (36.0-66.0); PLATELET COUNT, AUTOMATED 145 10^3/uL (150-450); RED BLOOD COUNT 5.42 10^6/uL (4.30-6.10); WHITE BLOOD COUNT 4.3 10^3/uL (4.0-10.0)
[2020-04-10 12:05] LABS: HEMOGLOBIN A1c 4.6 %
[2020-04-10 12:37] LABS: ALBUMIN 4.6 GM/DL (3.2-5.2); ALT/SGPT 32 U/L (12-78); BILIRUBIN,TOTAL 1.2 MG/DL (0.2-1.0); BLOOD UREA NITROGEN 17 MG/DL (7-18); CALCIUM LEVEL 9.5 MG/DL (8.5-10.1); CARBON DIOXIDE LEVEL 30 MEQ/L (21-32); CHLORIDE LEVEL 102 MEQ/L (98-107); CHOLESTEROL LEVEL 147 MG/DL (<200); CHOLESTEROL RISK RATIO 4.593 (<5); CREATININE FOR GFR 1.09 MG/DL (0.70-1.30); GLOMERULAR FILTRATION RATE > 60.0 (>60); GLUCOSE, FASTING 87 MG/DL (70-100); HDL CHOLESTEROL 32 MG/DL (>40); LDL CHOLESTEROL 85 MG/DL (<100); NON-HDL-C 115 MG/DL; POTASSIUM SERUM 4.9 MEQ/L (3.5-5.1); PROLACTIN 32.4 NG/ML (2.1-17.7); SODIUM LEVEL 139 MEQ/L (136-145); TOTAL 25(OH) VITAMIN D 40.2 NG/ML (30.0-100.0); TOTAL PROTEIN 7.5 GM/DL (6.4-8.2); TRIGLYCERIDES LEVEL 149 MG/DL (<150); VALPROIC ACID (DEPAKOTE) 87.9 UG/ML (50.0-100.0); VITAMIN B12 LEVEL 642 PG/ML (247-911)
== END ==
LOC: M WUC 09:04
PROVIDERS: ATTEND Nurse Practitioner Psychiatric/Mental Health
DX: F25.9 Schizoaffective disorder, unspecified (principal)

== ENCOUNTER → 2020-08-03 | Outpatient (CLI) | payer OTHER, MEDICAID ==
--- NOTE | 2020-08-03 10:22 | REPVR ---
PROCEDURE INFORMATION: Exam: CT Head Without Contrast Exam date and time: 08/03/2020 9:50 AM Age: 29 years old Clinical indication: Condition or disease; Other: Cerebral palsy; Additional info: Spastic diplegic cerebral palsy TECHNIQUE: Imaging protocol: Computed tomography of the head without contrast. Radiation optimization: All CT scans at this facility use at least one of these dose optimization techniques: automated exposure control; mA and/or kV adjustment per patient size (includes targeted exams where dose is matched to clinical indication); or iterative reconstruction. COMPARISON: No relevant prior studies available. FINDINGS: Brain: No acute intracranial hemorrhage. There is slight interdigitation of sulci in midline frontal region with lack of visualization of a small portion of the falx which may be fenestrated. 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 There is no evidence of acute loss of steel-white differentiation to suggest acute infarct. 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 The ventricles appear nondilated. Bones/joints: There is deformity of right posterior parietal skull which is likely related to a prior xenia hole and possibly a removed shunt catheter and there adjacent soft tissue change which is likely scarring with slight indentation of the skin surface. Calvarium appears somewhat small compared to facial structures which may indicate some degree of microcephaly and correlate clinically. Paranasal sinuses: Visualized right maxillary sinus is small and opacified likely related to chronic mucosal disease. 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 Mastoid air cells: No significant mastoid effusion. Soft tissues: Unremarkable as visualized. IMPRESSION: 1. Shunt catheter in place without evidence of hydrocephalus. 2. Other nonacute findings as described. Electronically signed by: Tomasa Briscoe On 08/03/2020 10:21:44 AM
== END ==
LOC: M RAD 09:32
PROVIDERS: ATTEND Student in an Organized Health Care Education/Training Program
DX: G80.1 Spastic diplegic cerebral palsy (principal)

== ENCOUNTER → 2020-08-25 | Outpatient (CLI) | payer OTHER, MEDICAID ==
[2020-08-25 10:18] LABS: BASO % 0.3 % (0.0-1.0); EOS % 0.9 % (0.0-3.0); HEMATOCRIT 44.6 % (42.0-52.0); HEMOGLOBIN 15.2 g/dl (13.5-17.5); LYMPH # 1.6 10^3/uL (1.5-5.0); LYMPH % 48.8 % (24.0-44.0); MEAN CORPUSCULAR HEMOGLOBIN 29.2 pg (27.0-33.0); MEAN CORPUSCULAR HGB CONC 34.1 g/dl (32.0-36.5); MEAN CORPUSCULAR VOLUME 85.6 fl (80.0-96.0); MONO # 0.4 10^3/uL (0.0-0.8); MONO % 10.4 % (2.0-8.0); NEUTROPHILS # 1.3 10^3/uL (1.5-8.5); NEUTROPHILS % 39.3 % (36.0-66.0); PLATELET COUNT, AUTOMATED 144 10^3/uL (150-450); RED BLOOD COUNT 5.21 10^6/uL (4.30-6.10); WHITE BLOOD COUNT 3.4 10^3/uL (4.0-10.0)
[2020-08-25 10:59] LABS: ALBUMIN 4.2 GM/DL (3.2-5.2); ALT/SGPT 29 U/L (12-78); BILIRUBIN,TOTAL 1.6 MG/DL (0.2-1.0); BLOOD UREA NITROGEN 13 MG/DL (7-18); CALCIUM LEVEL 9.3 MG/DL (8.5-10.1); CARBON DIOXIDE LEVEL 28 MEQ/L (21-32); CHLORIDE LEVEL 104 MEQ/L (98-107); CHOLESTEROL LEVEL 149 MG/DL (<200); CHOLESTEROL RISK RATIO 4.656 (<5); CREATININE FOR GFR 0.98 MG/DL (0.70-1.30); GLOMERULAR FILTRATION RATE > 60.0 (>60); GLUCOSE, FASTING 79 MG/DL (70-100); HDL CHOLESTEROL 32 MG/DL (>40); LDL CHOLESTEROL 91 MG/DL (<100); NON-HDL-C 117 MG/DL; POTASSIUM SERUM 4.3 MEQ/L (3.5-5.1); PROLACTIN 38.5 NG/ML (2.1-17.7); SODIUM LEVEL 139 MEQ/L (136-145); TOTAL PROTEIN 7.1 GM/DL (6.4-8.2); TRIGLYCERIDES LEVEL 130 MG/DL (<150); VALPROIC ACID (DEPAKOTE) 89.3 UG/ML (50.0-100.0)
[2020-08-25 11:11] LABS: HEMOGLOBIN A1c 4.7 %
== END ==
LOC: M WUC 08:40
PROVIDERS: ATTEND Physician Assistant
DX: Z79.899 Other long term (current) drug therapy (principal)

== ENCOUNTER → 2020-09-16 | Outpatient (REF) | payer OTHER, MEDICAID | LOC: M SFHCPLAZ 10:52 | PROVIDERS: ATTEND Student in an Organized Health Care Education/Training Program | DX: Z13.1 Encounter for screening for diabetes mellitus (principal); F31.32 Bipolar disorder, current episode depressed, moderate; I10 Essential (primary) hypertension ==

== ENCOUNTER → 2021-01-05 | Outpatient (REF) | payer OTHER, MEDICAID ==
[2021-01-05 16:14] LABS: APPEARANCE, URINE CLEAR (CLEAR); BACTERIA, URINE AUTO NEGATIVE (NEGATIVE); BILIRUBIN, URINE AUTO NEGATIVE (NEGATIVE); BLOOD, URINE BLOOD NEGATIVE (NEGATIVE); COLOR, URINE COLORLESS (YELLOW); GLUCOSE, URINE (UA) AUTO NEGATIVE (NEGATIVE); KETONE, URINE AUTO NEGATIVE (NEGATIVE); LEUKOCYTE ESTERASE, URINE AUTO NEGATIVE (NEGATIVE); NITRITE, URINE AUTO NEGATIVE (NEGATIVE); PROTEIN, URINE AUTO NEGATIVE (NEGATIVE); RBC, URINE AUTO 0 /HPF (0-3); SPECIFIC GRAVITY URINE AUTO 1.001 (1.002-1.035); SQUAMOUS EPITHELIAL CELL UR AU 0 /HPF (0-6); UROBILINOGEN, URINE AUTO 0.2 mg/dL (0.0-2.0); WBC, URINE AUTO 0 /HPF (0-3)
== END ==
LOC: M SFHCPLAZ 15:31
PROVIDERS: ATTEND Student in an Organized Health Care Education/Training Program
DX: R30.0 Dysuria (principal)

== ENCOUNTER 2021-04-16 20:07 | Emergency (ER) | payer OTHER, MEDICAID ==
[2021-04-16 20:25] VITALS: BP 144/98
== END 2021-04-16 22:52 | disposition home or self-care (01) ==
LOC: M ED 20:07
DX: F43.0 Acute stress reaction (principal); F31.9 Bipolar disorder, unspecified; Z98.2 Presence of cerebrospinal fluid drainage device; F63.9 Impulse disorder, unspecified

== ENCOUNTER → 2021-09-23 | Outpatient (CLI) | payer OTHER, MEDICAID ==
[~2021-09-23] MED LIST changes: -D31000TA2 PO; +VITA100093 PO
[2021-09-23 13:56] LABS: BASO % 0.4 % (0.0-1.0); EOS % 0.6 % (0.0-3.0); HEMATOCRIT 44.1 % (42.0-52.0); HEMOGLOBIN 15.5 g/dl (13.5-17.5); LYMPH % 42.5 % (24.0-44.0); MEAN CORPUSCULAR HEMOGLOBIN 29.8 pg (27.0-33.0); MEAN CORPUSCULAR HGB CONC 35.1 g/dl (32.0-36.5); MEAN CORPUSCULAR VOLUME 84.8 fl (80.0-96.0); MONO # 0.5 10^3/uL (0.0-0.8); NEUTROPHILS # 2.1 10^3/uL (1.5-8.5); NEUTROPHILS % 45.9 % (36.0-66.0); PLATELET COUNT, AUTOMATED 151 10^3/uL (150-450); WHITE BLOOD COUNT 4.7 10^3/uL (4.0-10.0)
[2021-09-23 14:03] LABS: BLOOD UREA NITROGEN 15 MG/DL (7-18); CALCIUM LEVEL 9.5 MG/DL (8.5-10.1); CARBON DIOXIDE LEVEL 27 MEQ/L (21-32); CHLORIDE LEVEL 107 MEQ/L (98-107); CHOLESTEROL LEVEL 145 MG/DL (<200); CREATININE FOR GFR 1.02 MG/DL (0.70-1.30); GLOMERULAR FILTRATION RATE > 60.0 (>60); GLUCOSE, FASTING 92 MG/DL (70-100); HDL CHOLESTEROL 27 MG/DL (>40); LDL CHOLESTEROL 74 MG/DL (<100); NON-HDL-C 118 MG/DL; POTASSIUM SERUM 4.4 MEQ/L (3.5-5.1); SODIUM LEVEL 140 MEQ/L (136-145); TRIGLYCERIDES LEVEL 222 MG/DL (<150); VALPROIC ACID (DEPAKOTE) 72.9 UG/ML (50.0-100.0)
[2021-09-23 14:43] LABS: HEMOGLOBIN A1c 4.9 %
== END ==
LOC: M PLALAB 09:16
PROVIDERS: ATTEND Student in an Organized Health Care Education/Training Program
DX: Z13.1 Encounter for screening for diabetes mellitus (principal)

== ENCOUNTER → 2021-11-02 | Outpatient (CLI) | payer OTHER, MEDICAID ==
[2021-11-02 10:00] LABS: BASO % 0.2 % (0.0-1.0); EOS # 0.1 10^3/uL (0.0-0.5); EOS % 1.2 % (0.0-3.0); HEMATOCRIT 43.2 % (42.0-52.0); HEMOGLOBIN 14.9 g/dl (13.5-17.5); LYMPH # 2.3 10^3/uL (1.5-5.0); LYMPH % 44.3 % (24.0-44.0); MEAN CORPUSCULAR HEMOGLOBIN 29.3 pg (27.0-33.0); MEAN CORPUSCULAR HGB CONC 34.5 g/dl (32.0-36.5); MONO # 0.5 10^3/uL (0.0-0.8); MONO % 9.4 % (2.0-8.0); NEUTROPHILS # 2.3 10^3/uL (1.5-8.5); NEUTROPHILS % 44.5 % (36.0-66.0); PLATELET COUNT, AUTOMATED 145 10^3/uL (150-450); RED BLOOD COUNT 5.08 10^6/uL (4.30-6.10); WHITE BLOOD COUNT 5.1 10^3/uL (4.0-10.0)
[2021-11-02 10:25] LABS: ALT/SGPT 31 U/L (12-78); BILIRUBIN,TOTAL 1.2 MG/DL (0.2-1.0); BLOOD UREA NITROGEN 15 MG/DL (7-18); CARBON DIOXIDE LEVEL 25 MEQ/L (21-32); CHLORIDE LEVEL 110 MEQ/L (98-107); CHOLESTEROL LEVEL 135 MG/DL (<200); CREATININE FOR GFR 0.98 MG/DL (0.70-1.30); GLOMERULAR FILTRATION RATE > 60.0 (>60); GLUCOSE, FASTING 79 MG/DL (70-100); HDL CHOLESTEROL 25 MG/DL (>40); LDL CHOLESTEROL 66 MG/DL (<100); NON-HDL-C 110 MG/DL; POTASSIUM SERUM 4.3 MEQ/L (3.5-5.1); SODIUM LEVEL 143 MEQ/L (136-145); TRIGLYCERIDES LEVEL 218 MG/DL (<150); VALPROIC ACID (DEPAKOTE) 85.1 UG/ML (50.0-100.0)
[2021-11-02 10:47] LABS: HEMOGLOBIN A1c 5.1 %
[2021-11-02 11:17] LABS: PROLACTIN 28.3 NG/ML (2.1-17.7)
== END ==
LOC: M WUC 08:17
PROVIDERS: ATTEND Physician Assistant
DX: Z79.899 Other long term (current) drug therapy (principal)

== ENCOUNTER 2022-07-24 19:52 | Emergency (ER) | payer OTHER, MEDICAID ==
[~2022-07-24] VITALS: Ht 162.6 cm; Wt 81.1 kg
[2022-07-24 20:25] LABS: HEMATOCRIT 42.3 % (42.0-52.0); HEMOGLOBIN 14.8 g/dl (13.5-17.5); MEAN CORPUSCULAR HEMOGLOBIN 29.3 pg (27.0-33.0); MEAN CORPUSCULAR VOLUME 83.8 fl (80.0-96.0); PLATELET COUNT, AUTOMATED 168 10^3/uL (150-450); RED BLOOD COUNT 5.05 10^6/uL (4.30-6.10); WHITE BLOOD COUNT 6.3 10^3/uL (4.0-10.0)
[2022-07-24 20:38] LABS: ETHYL ALCOHOL (ETHANOL) 0.003 % (0.000-0.010)
[2022-07-24 20:39] LABS: HEMOGLOBIN A1c 4.7 % (4.0-6.0)
[2022-07-24 20:40] LABS: ACETAMINOPHEN LEVEL < 2.0 UG/ML (10.0-20.0); SALICYLATE LEVEL < 3.0 MG/DL (<30)
[2022-07-24 20:41] LABS: ALBUMIN 4.1 G/DL (3.2-5.2); ALKALINE PHOSPHATASE 50 U/L (46-116); ALT/SGPT 14 U/L (7.0-40); AST/SGOT 16 U/L (<34); BILIRUBIN,DIRECT 0.2 MG/DL (<0.4); BILIRUBIN,TOTAL 0.7 MG/DL (0.3-1.2); BLOOD UREA NITROGEN 19 MG/DL (9-23); CALCIUM LEVEL 8.9 MG/DL (8.5-10.1); CARBON DIOXIDE LEVEL 22 MMOL/L (20-31); CHLORIDE LEVEL 108 MMOL/L (98-107); CHOLESTEROL LEVEL 129 MG/DL (<200); CHOLESTEROL RISK RATIO 5.05 (<5); CREATININE FOR GFR 0.83 MG/DL (0.70-1.30); GLOMERULAR FILTRATION RATE > 60.0 (>60); GLUCOSE, FASTING 106 MG/DL (60-100); HDL CHOLESTEROL 25.5 MG/DL (>40); LDL CHOLESTEROL 49.1 MG/DL (<100); NON-HDL-C 103.5 MG/DL; POTASSIUM SERUM 4.2 MMOL/L (3.5-5.1); SODIUM LEVEL 139 MMOL/L (136-145); TOTAL PROTEIN 6.9 G/DL (5.7-8.2); TRIGLYCERIDES LEVEL 272 MG/DL (<150)
[2022-07-24 20:43] LABS: THYROID STIMULATING HORMONE 2.515 uIU/ML (0.55-4.78)
[2022-07-24 23:31] LABS: AMPHETAMINES LEVEL URINE NEGATIVE (NEGATIVE); BARBITURATES URINE NEGATIVE (NEGATIVE); BENZODIAZEPINES URINE NEGATIVE (NEGATIVE); CANNABINOIDS URINE NEGATIVE (NEGATIVE); COCAINE METABOLITE URINE NEGATIVE (NEGATIVE); METHADONE URINE NEGATIVE (NEGATIVE); OPIATES URINE NEGATIVE (NEGATIVE); PHENCYCLIDINE URINE NEGATIVE (NEGATIVE)
[2022-07-25 00:32] VITALS: BP 150/69
== END 2022-07-25 00:34 | disposition home or self-care (01) ==
LOC: M ED 19:52
DX: F43.9 Reaction to severe stress, unspecified (principal); I10 Essential (primary) hypertension; F32.A Depression, unspecified; F31.9 Bipolar disorder, unspecified; G80.9 Cerebral palsy, unspecified; Z88.5 Allergy status to narcotic agent; Z88.8 Allergy status to other drugs, medicaments and biological substances; Z79.899 Other long term (current) drug therapy

== ENCOUNTER 2022-08-07 15:12 | Emergency (ER) | payer OTHER, MEDICAID ==
[~2022-08-07] VITALS: Ht 157.5 cm; Wt 90.9 kg
[2022-08-07 16:23] LABS: HEMATOCRIT 42.2 % (42.0-52.0); HEMOGLOBIN 14.5 g/dl (13.5-17.5); MEAN CORPUSCULAR HEMOGLOBIN 28.9 pg (27.0-33.0); MEAN CORPUSCULAR HGB CONC 34.4 g/dl (32.0-36.5); MEAN CORPUSCULAR VOLUME 84.1 fl (80.0-96.0); PLATELET COUNT, AUTOMATED 148 10^3/uL (150-450); RED BLOOD COUNT 5.02 10^6/uL (4.30-6.10); WHITE BLOOD COUNT 5.9 10^3/uL (4.0-10.0)
[2022-08-07 16:30] LABS: AMPHETAMINES LEVEL URINE NEGATIVE (NEGATIVE); BARBITURATES URINE NEGATIVE (NEGATIVE); BENZODIAZEPINES URINE NEGATIVE (NEGATIVE); COCAINE METABOLITE URINE NEGATIVE (NEGATIVE); METHADONE URINE NEGATIVE (NEGATIVE)
[2022-08-07 16:31] LABS: CANNABINOIDS URINE NEGATIVE (NEGATIVE); OPIATES URINE NEGATIVE (NEGATIVE); PHENCYCLIDINE URINE NEGATIVE (NEGATIVE)
[2022-08-07 16:45] LABS: ETHYL ALCOHOL (ETHANOL) < 0.003 % (0.000-0.010); VALPROIC ACID (DEPAKOTE) 46.6 UG/ML (50.0-100.0)
[2022-08-07 16:47] LABS: ACETAMINOPHEN LEVEL < 2.0 UG/ML (10.0-20.0); ALBUMIN 4.3 G/DL (3.2-5.2); ALKALINE PHOSPHATASE 50 U/L (46-116); ALT/SGPT 24 U/L (7.0-40); AST/SGOT 16 U/L (<34); BILIRUBIN,DIRECT 0.2 MG/DL (<0.4); BILIRUBIN,TOTAL 0.7 MG/DL (0.3-1.2); BLOOD UREA NITROGEN 12 MG/DL (9-23); CALCIUM LEVEL 9.2 MG/DL (8.5-10.1); CARBON DIOXIDE LEVEL 25 MMOL/L (20-31); CHLORIDE LEVEL 105 MMOL/L (98-107); CREATININE FOR GFR 0.84 MG/DL (0.70-1.30); GLOMERULAR FILTRATION RATE > 60.0 (>60); GLUCOSE, FASTING 94 MG/DL (60-100); POTASSIUM SERUM 4.2 MMOL/L (3.5-5.1); SALICYLATE LEVEL < 3.0 MG/DL (<30); SODIUM LEVEL 139 MMOL/L (136-145)
[2022-08-07 16:49] LABS: THYROID STIMULATING HORMONE 1.758 uIU/ML (0.55-4.78)
[2022-08-07 18:34] VITALS: BP 178/106
== END 2022-08-07 22:21 | disposition home or self-care (01) ==
LOC: M ED 15:12 → EDBD 15:12 → M ED 22:21
DX: F43.9 Reaction to severe stress, unspecified (principal); I10 Essential (primary) hypertension; F32.A Depression, unspecified; F31.9 Bipolar disorder, unspecified; E55.9 Vitamin D deficiency, unspecified; Z88.8 Allergy status to other drugs, medicaments and biological substances; Z79.899 Other long term (current) drug therapy

== ENCOUNTER → 2022-08-11 | Outpatient (CLI) | payer OTHER, MEDICAID ==
[2022-08-11 17:22] LABS: HEMATOCRIT 44.2 % (42.0-52.0); HEMOGLOBIN 15.3 g/dl (13.5-17.5); MEAN CORPUSCULAR HEMOGLOBIN 29.2 pg (27.0-33.0); MEAN CORPUSCULAR HGB CONC 34.6 g/dl (32.0-36.5); MEAN CORPUSCULAR VOLUME 84.4 fl (80.0-96.0); PLATELET COUNT, AUTOMATED 195 10^3/uL (150-450); RED BLOOD COUNT 5.24 10^6/uL (4.30-6.10); WHITE BLOOD COUNT 5.1 10^3/uL (4.0-10.0)
[2022-08-11 17:50] LABS: THYROID STIMULATING HORMONE 1.426 uIU/ML (0.55-4.78)
[2022-08-11 17:51] LABS: TOTAL 25(OH) VITAMIN D 42.4 NG/ML (20.0-100.0)
[2022-08-11 17:52] LABS: VALPROIC ACID (DEPAKOTE) 53.7 UG/ML (50.0-100.0)
[2022-08-11 17:54] LABS: ALBUMIN 3.9 G/DL (3.2-5.2); ALKALINE PHOSPHATASE 53 U/L (46-116); ALT/SGPT 21 U/L (7.0-40); AST/SGOT 14 U/L (<34); BILIRUBIN,TOTAL 0.7 MG/DL (0.3-1.2); BLOOD UREA NITROGEN 18 MG/DL (9-23); CALCIUM LEVEL 8.9 MG/DL (8.5-10.1); CARBON DIOXIDE LEVEL 27 MMOL/L (20-31); CHLORIDE LEVEL 103 MMOL/L (98-107); CHOLESTEROL LEVEL 128 MG/DL (<200); CHOLESTEROL RISK RATIO 5.56 (<5); CREATININE FOR GFR 0.89 MG/DL (0.70-1.30); GLOMERULAR FILTRATION RATE > 60.0 (>60); GLUCOSE, FASTING 88 MG/DL (60-100); LDL CHOLESTEROL 42.4 MG/DL (<100); SODIUM LEVEL 140 MMOL/L (136-145); TOTAL PROTEIN 6.6 G/DL (5.7-8.2); TRIGLYCERIDES LEVEL 313 MG/DL (<150)
[2022-08-11 18:13] LABS: HEMOGLOBIN A1c 4.8 % (4.0-6.0)
== END ==
LOC: M WUC 14:55
PROVIDERS: ATTEND Student in an Organized Health Care Education/Training Program
DX: E78.5 Hyperlipidemia, unspecified (principal); I10 Essential (primary) hypertension; Z83.3 Family history of diabetes mellitus
CPT/HCPCS: 36415; 80053; 80061; 80164; 82306; 83036; 84443; 85027; G0480

== ENCOUNTER → 2022-09-08 | Outpatient (CLI) | payer OTHER, MEDICAID | LOC: M RAD 15:16 | PROVIDERS: ATTEND Nurse Practitioner Family | DX: G91.9 Hydrocephalus, unspecified (principal) ==

== ENCOUNTER → 2022-12-28 | Outpatient (CLI) | payer OTHER, MEDICAID ==
[2022-12-28 12:05] LABS: BASO % 0.5 % (0.0-1.0); HEMATOCRIT 46.2 % (42.0-52.0); HEMOGLOBIN 15.4 g/dl (13.5-17.5); LYMPH % 49.6 % (24.0-44.0); MEAN CORPUSCULAR HEMOGLOBIN 28.9 pg (27.0-33.0); MEAN CORPUSCULAR HGB CONC 33.3 g/dl (32.0-36.5); MEAN CORPUSCULAR VOLUME 86.7 fl (80.0-96.0); MONO # 0.5 10^3/uL (0.0-0.8); MONO % 11.9 % (2.0-8.0); NEUTROPHILS # 1.4 10^3/uL (1.5-8.5); NEUTROPHILS % 36.2 % (36.0-66.0); PLATELET COUNT, AUTOMATED 164 10^3/uL (150-450); RED BLOOD COUNT 5.33 10^6/uL (4.30-6.10)
[2022-12-28 12:26] LABS: VALPROIC ACID (DEPAKOTE) 62.9 UG/ML (50.0-100.0)
[2022-12-28 12:31] LABS: ALBUMIN 4.2 G/DL (3.2-5.2); ALKALINE PHOSPHATASE 43 U/L (46-116); ALT/SGPT 34 U/L (7.0-40); AST/SGOT 17 U/L (<34); BLOOD UREA NITROGEN 17 MG/DL (9-23); CALCIUM LEVEL 9.2 MG/DL (8.5-10.1); CARBON DIOXIDE LEVEL 30 MMOL/L (20-31); CHLORIDE LEVEL 107 MMOL/L (98-107); CHOLESTEROL LEVEL 125 MG/DL (<200); CHOLESTEROL RISK RATIO 4.96 (<5); CREATININE FOR GFR 0.98 MG/DL (0.70-1.30); GLOMERULAR FILTRATION RATE > 60.0 (>60); GLUCOSE, FASTING 93 MG/DL (60-100); HDL CHOLESTEROL 25.2 MG/DL (>40); NON-HDL-C 99.8 MG/DL; POTASSIUM SERUM 4.1 MMOL/L (3.5-5.1); PROLACTIN 19.77 NG/ML (2.1-17.7); SODIUM LEVEL 143 MMOL/L (136-145); TOTAL PROTEIN 6.9 G/DL (5.7-8.2); TRIGLYCERIDES LEVEL 249 MG/DL (<150)
[2022-12-28 12:35] LABS: HEMOGLOBIN A1c 4.9 % (4.0-6.0)
== END ==
LOC: M WUC 08:37
PROVIDERS: ATTEND Physician Assistant
DX: Z79.899 Other long term (current) drug therapy (principal)

== ENCOUNTER → 2023-03-01 | Outpatient (CLI) | payer OTHER, MEDICAID ==
[2023-03-01 09:55] LABS: BASO % 0.4 % (0.0-1.0); EOS % 0.9 % (0.0-3.0); HEMATOCRIT 43.8 % (42.0-52.0); HEMOGLOBIN 15.1 g/dl (13.5-17.5); LYMPH # 2.3 10^3/uL (1.5-5.0); LYMPH % 49.4 % (24.0-44.0); MEAN CORPUSCULAR HEMOGLOBIN 28.8 pg (27.0-33.0); MEAN CORPUSCULAR HGB CONC 34.5 g/dl (32.0-36.5); MEAN CORPUSCULAR VOLUME 83.6 fl (80.0-96.0); MONO # 0.3 10^3/uL (0.0-0.8); MONO % 7.4 % (2.0-8.0); NEUTROPHILS # 1.9 10^3/uL (1.5-8.5); NEUTROPHILS % 41.5 % (36.0-66.0); PLATELET COUNT, AUTOMATED 166 10^3/uL (150-450); RED BLOOD COUNT 5.24 10^6/uL (4.30-6.10); WHITE BLOOD COUNT 4.6 10^3/uL (4.0-10.0)
[2023-03-01 10:25] LABS: VALPROIC ACID (DEPAKOTE) 57.9 UG/ML (50.0-100.0)
[2023-03-01 10:27] LABS: PROLACTIN 26.02 NG/ML (2.1-17.7)
[2023-03-01 10:29] LABS: ALBUMIN 3.9 G/DL (3.2-5.2); ALKALINE PHOSPHATASE 43 U/L (46-116); ALT/SGPT 33 U/L (7.0-40); AST/SGOT 9 U/L (<34); BILIRUBIN,TOTAL 1.2 MG/DL (0.3-1.2); BLOOD UREA NITROGEN 13 MG/DL (9-23); CALCIUM LEVEL 8.7 MG/DL (8.5-10.1); CARBON DIOXIDE LEVEL 28 MMOL/L (20-31); CHLORIDE LEVEL 105 MMOL/L (98-107); CHOLESTEROL LEVEL 119 MG/DL (<200); CHOLESTEROL RISK RATIO 4.59 (<5); CREATININE FOR GFR 0.92 MG/DL (0.70-1.30); GLOMERULAR FILTRATION RATE > 60.0 (>60); GLUCOSE, FASTING 79 MG/DL (60-100); HDL CHOLESTEROL 25.9 MG/DL (>40); LDL CHOLESTEROL 68.3 MG/DL (<100); NON-HDL-C 93.1 MG/DL; POTASSIUM SERUM 4.3 MMOL/L (3.5-5.1); SODIUM LEVEL 139 MMOL/L (136-145); TOTAL PROTEIN 6.6 G/DL (5.7-8.2); TRIGLYCERIDES LEVEL 124 MG/DL (<150)
[2023-03-01 10:49] LABS: HEMOGLOBIN A1c 4.7 % (4.0-6.0)
== END ==
LOC: M WUC 08:19
PROVIDERS: ATTEND Physician Assistant
DX: Z79.899 Other long term (current) drug therapy (principal)

== ENCOUNTER 2023-04-23 16:38 | Emergency (ER) | payer OTHER, MEDICAID ==
[~2023-04-23] VITALS: Ht 152.4 cm; Wt 75.0 kg
[2023-04-23 16:52] VITALS: BP 130/69; TEMP 97.8; O2SAT 97
[2023-04-23] MEDS ORDERED: PRAZOSIN 1 MG CAP PO STA (18:48)
[2023-04-23] MEDS ORDERED: DIVALPROEX 500 MG TAB PO ONE (18:50)
[2023-04-23] MEDS ORDERED: busPIRone 5 MG TAB PO ONE (18:50)
[2023-04-23] MEDS ORDERED: risperiDONE 2 MG TAB PO ONE (18:50)
[2023-04-23 19:32] VITALS: BP 132/80
== END 2023-04-23 20:19 | disposition home or self-care (01) ==
LOC: M ED 16:38 → EDBD 16:38 → M ED 20:19
DX: F43.0 Acute stress reaction (principal); F80.9 Developmental disorder of speech and language, unspecified; Z98.2 Presence of cerebrospinal fluid drainage device; F31.64 Bipolar disorder, current episode mixed, severe, with psychotic features; J30.1 Allergic rhinitis due to pollen; Z99.3 Dependence on wheelchair; Z79.899 Other long term (current) drug therapy; Z88.5 Allergy status to narcotic agent; Z88.8 Allergy status to other drugs, medicaments and biological substances

== ENCOUNTER → 2023-05-12 | Outpatient (CLI) | payer OTHER, MEDICAID ==
[2023-05-12 16:02] LABS: BASO % 0.3 % (0.0-1.0); EOS % 0.3 % (0.0-3.0); HEMATOCRIT 43.9 % (42.0-52.0); LYMPH # 1.9 10^3/uL (1.5-5.0); LYMPH % 32.3 % (24.0-44.0); MEAN CORPUSCULAR HGB CONC 34.2 g/dl (32.0-36.5); MEAN CORPUSCULAR VOLUME 84.7 fl (80.0-96.0); MONO # 0.5 10^3/uL (0.0-0.8); MONO % 8.1 % (2.0-8.0); NEUTROPHILS # 3.5 10^3/uL (1.5-8.5); NEUTROPHILS % 58.7 % (36.0-66.0); PLATELET COUNT, AUTOMATED 164 10^3/uL (150-450); RED BLOOD COUNT 5.18 10^6/uL (4.30-6.10); WHITE BLOOD COUNT 5.9 10^3/uL (4.0-10.0)
[2023-05-12 16:27] LABS: HEMOGLOBIN A1c 4.7 % (4.0-6.0)
[2023-05-12 16:32] LABS: VALPROIC ACID (DEPAKOTE) 57.3 UG/ML (50.0-100.0)
[2023-05-12 16:35] LABS: ALBUMIN 4.2 G/DL (3.2-5.2); ALKALINE PHOSPHATASE 45 U/L (46-116); ALT/SGPT 24 U/L (7.0-40); AST/SGOT < 8 U/L (<34); BILIRUBIN,TOTAL 1.1 MG/DL (0.3-1.2); BLOOD UREA NITROGEN 15 MG/DL (9-23); CALCIUM LEVEL 9.4 MG/DL (8.5-10.1); CARBON DIOXIDE LEVEL 30 MMOL/L (20-31); CHLORIDE LEVEL 106 MMOL/L (98-107); CHOLESTEROL LEVEL 113 MG/DL (<200); CHOLESTEROL RISK RATIO 4.41 (<5); CREATININE FOR GFR 0.97 MG/DL (0.70-1.30); GLOMERULAR FILTRATION RATE > 60.0 (>60); GLUCOSE, FASTING 85 MG/DL (60-100); HDL CHOLESTEROL 25.6 MG/DL (>40); LDL CHOLESTEROL 58.8 MG/DL (<100); NON-HDL-C 87.4 MG/DL; POTASSIUM SERUM 4.4 MMOL/L (3.5-5.1); SODIUM LEVEL 140 MMOL/L (136-145); TOTAL PROTEIN 7.1 G/DL (5.7-8.2); TRIGLYCERIDES LEVEL 143 MG/DL (<150)
[2023-05-12 16:36] LABS: THYROID STIMULATING HORMONE 1.341 uIU/ML (0.55-4.78)
[2023-05-18 19:13] LABS: RISPERIDONE1 47.5 ng/ml (Not Estab.); RISPERIDONE2 26.9 ng/ml (Not Estab.); RISPERIDONE3 74.4 ng/ml (10.0-120.0)
== END ==
LOC: M PLALAB 12:37
PROVIDERS: ATTEND Student in an Organized Health Care Education/Training Program
DX: E78.5 Hyperlipidemia, unspecified (principal); I10 Essential (primary) hypertension; F31.9 Bipolar disorder, unspecified; G80.1 Spastic diplegic cerebral palsy
CPT/HCPCS: 36415; 80053; 80061; 80164; 83036; 84443; 85025; G0480

== ENCOUNTER → 2023-09-01 | Outpatient (REF) | payer OTHER, MEDICAID ==
[~2023-09-01] MED LIST changes: +FLUO-365 PO; -FLUO20CA22 PO; -RISP-11 PO; +RISP4TAB95 PO
[2023-09-01 14:09] LABS: BASO % 0.5 % (0.0-1.0); EOS % 0.7 % (0.0-3.0); HEMATOCRIT 44.2 % (42.0-52.0); HEMOGLOBIN 15.4 g/dl (13.5-17.5); LYMPH # 2.3 10^3/uL (1.5-5.0); LYMPH % 40.8 % (24.0-44.0); MEAN CORPUSCULAR HEMOGLOBIN 29.3 pg (27.0-33.0); MEAN CORPUSCULAR HGB CONC 34.8 g/dl (32.0-36.5); MEAN CORPUSCULAR VOLUME 84.2 fl (80.0-96.0); MONO # 0.5 10^3/uL (0.0-0.8); MONO % 8.3 % (2.0-8.0); NEUTROPHILS # 2.8 10^3/uL (1.5-8.5); NEUTROPHILS % 49.3 % (36.0-66.0); PLATELET COUNT, AUTOMATED 151 10^3/uL (150-450); RED BLOOD COUNT 5.25 10^6/uL (4.30-6.10); WHITE BLOOD COUNT 5.7 10^3/uL (4.0-10.0)
[2023-09-01 14:16] LABS: ALBUMIN 4.1 G/DL (3.2-5.2); ALKALINE PHOSPHATASE 48 U/L (46-116); ALT/SGPT 31 U/L (7.0-40); AST/SGOT 10 U/L (<34); BILIRUBIN,TOTAL 1.2 MG/DL (0.3-1.2); BLOOD UREA NITROGEN 15 MG/DL (9-23); CALCIUM LEVEL 9.6 MG/DL (8.5-10.1); CARBON DIOXIDE LEVEL 26 MMOL/L (20-31); CHLORIDE LEVEL 106 MMOL/L (98-107); CREATININE FOR GFR 0.92 MG/DL (0.70-1.30); GLOMERULAR FILTRATION RATE > 60.0 (>60); GLUCOSE, FASTING 92 MG/DL (60-100); POTASSIUM SERUM 4.5 MMOL/L (3.5-5.1); SODIUM LEVEL 140 MMOL/L (136-145); TOTAL PROTEIN 6.8 G/DL (5.7-8.2)
[2023-09-01 14:18] LABS: FREE T4 1.16 NG/DL (0.89-1.76); THYROID STIMULATING HORMONE 1.459 uIU/ML (0.55-4.78)
== END ==
LOC: M LABWUC 12:59
PROVIDERS: ATTEND Student in an Organized Health Care Education/Training Program
DX: R41.82 Altered mental status, unspecified (principal)

== ENCOUNTER → 2023-09-04 | Outpatient (CLI) | payer OTHER, MEDICAID | LOC: M PLAIMG 11:09 | PROVIDERS: ATTEND Student in an Organized Health Care Education/Training Program | DX: R41.82 Altered mental status, unspecified (principal) ==

== ENCOUNTER → 2024-01-09 | Outpatient (CLI) | payer MEDICAID, OTHER ==
[2024-01-09 11:11] LABS: BASO % 0.4 % (0.0-1.0); EOS # 0.1 10^3/uL (0.0-0.5); EOS % 1.5 % (0.0-3.0); HEMATOCRIT 45.9 % (42.0-52.0); HEMOGLOBIN 15.8 g/dl (13.5-17.5); LYMPH % 43.8 % (24.0-44.0); MEAN CORPUSCULAR HGB CONC 34.4 g/dl (32.0-36.5); MEAN CORPUSCULAR VOLUME 84.4 fl (80.0-96.0); MONO # 0.3 10^3/uL (0.0-0.8); MONO % 6.7 % (2.0-8.0); NEUTROPHILS # 2.2 10^3/uL (1.5-8.5); PLATELET COUNT, AUTOMATED 150 10^3/uL (150-450); RED BLOOD COUNT 5.44 10^6/uL (4.30-6.10); WHITE BLOOD COUNT 4.7 10^3/uL (4.0-10.0)
[2024-01-09 11:25] LABS: HEMOGLOBIN A1c 4.7 % (4.0-6.0)
[2024-01-09 11:34] LABS: VALPROIC ACID (DEPAKOTE) 81.3 UG/ML (50.0-100.0)
[2024-01-09 11:37] LABS: ALBUMIN 4.2 G/DL (3.2-5.2); ALKALINE PHOSPHATASE 48 U/L (46-116); ALT/SGPT 28 U/L (7.0-40); AST/SGOT < 8 U/L (<34); BILIRUBIN,TOTAL 1.1 MG/DL (0.3-1.2); BLOOD UREA NITROGEN 16 MG/DL (9-23); CALCIUM LEVEL 9.9 MG/DL (8.5-10.1); CARBON DIOXIDE LEVEL 28 MMOL/L (20-31); CHLORIDE LEVEL 108 MMOL/L (98-107); CHOLESTEROL LEVEL 139 MG/DL (<200); CHOLESTEROL RISK RATIO 4.92 (<5); GLOMERULAR FILTRATION RATE > 60.0 (>60); GLUCOSE, FASTING 99 MG/DL (60-100); HDL CHOLESTEROL 28.2 MG/DL (>40); LDL CHOLESTEROL 58.2 MG/DL (<100); NON-HDL-C 110.8 MG/DL; POTASSIUM SERUM 4.2 MMOL/L (3.5-5.1); SODIUM LEVEL 138 MMOL/L (136-145); TOTAL PROTEIN 7.2 G/DL (5.7-8.2); TRIGLYCERIDES LEVEL 263 MG/DL (<150)
== END ==
LOC: M WUC 08:29
PROVIDERS: ATTEND Physician Assistant
DX: Z79.899 Other long term (current) drug therapy (principal)

== ENCOUNTER 2024-11-04 20:12 | Inpatient (IN) | payer MEDICAID, OTHER ==
[~2024-11-04] VITALS: Ht 152.4 cm; Wt 76.0 kg
[~2024-11-04 20:12] MED LIST changes: -DEPA250T32 PO; +DIVA-65 PO; -PROZ20CA11 PO; +PROZ20CA12 PO
[2024-11-04 21:17] LABS: PLATELET COUNT, AUTOMATED 162 10^3/uL (150-450)
[2024-11-04 21:36] LABS: AMPHETAMINES LEVEL URINE NEGATIVE (NEGATIVE); BARBITURATES URINE NEGATIVE (NEGATIVE); BENZODIAZEPINES URINE NEGATIVE (NEGATIVE); CANNABINOIDS URINE NEGATIVE (NEGATIVE); COCAINE METABOLITE URINE NEGATIVE (NEGATIVE); METHADONE URINE NEGATIVE (NEGATIVE); OPIATES URINE NEGATIVE (NEGATIVE); PHENCYCLIDINE URINE NEGATIVE (NEGATIVE)
[2024-11-04 21:39] LABS: ETHYL ALCOHOL (ETHANOL) < 0.003 % (0.000-0.010)
[2024-11-04 21:41] LABS: ALT/SGPT 26 U/L (7.0-40); AST/SGOT 18 U/L (<34); CALCIUM LEVEL 9.2 MG/DL (8.5-10.1); CARBON DIOXIDE LEVEL 25 MMOL/L (20-31); CHLORIDE LEVEL 103 MMOL/L (98-107); CREATININE FOR GFR 0.93 MG/DL (0.70-1.30); GLOMERULAR FILTRATION RATE > 90.0 (>60); POTASSIUM SERUM 3.9 MMOL/L (3.5-5.1); SALICYLATE LEVEL < 3.0 MG/DL (<30); SODIUM LEVEL 140 MMOL/L (136-145)
[2024-11-04 22:57] LABS: VALPROIC ACID (DEPAKOTE) 41.8 UG/ML (50.0-100.0)
[2024-11-04] MEDS ORDERED: GUAI100S51 PO (23:08)
[2024-11-04] MEDS ORDERED: LISI30TA4 PO (23:08)
[2024-11-04] MEDS ORDERED: LOTR1CRE12 TOP (23:08)
[2024-11-04] MEDS ORDERED: TRIPOIN9 TOP (23:08)
[2024-11-04] MEDS ORDERED: D 101000 PO (23:08)
[2024-11-04] MEDS ORDERED: HOME MED LIST COMPLETE! XX SCH (23:10)
[2024-11-04] MEDS ORDERED: MOM 30 ML SUSPENSION UDC PO PRN (23:45)
[2024-11-04] MEDS ORDERED: MAALOX 30 ML SUSP *UDC PO PRN (23:45)
[2024-11-04] MEDS ORDERED: ACETAMINOPHEN 325 MG TAB PO PRN (23:45)
[2024-11-04] MEDS ORDERED: IBUPROFEN 400 MG TAB PO PRN (23:45)
[2024-11-05] MEDS ORDERED: guaiFENesin SYRUP 200 MG/10 ML UDC PO PRN (09:25)
[2024-11-05] MEDS ORDERED: NEOSPORIN TOP OINT 15 GM TOP PRN (09:25)
[2024-11-05] MEDS: VITAMIN D 1,000 INTERNATIONAL UNITS TABLET PO SCH (10:00)
[2024-11-05] MEDS: FLUoxetine 20 MG CAP PO SCH (14:06)
[2024-11-05] MEDS: DIVALPROEX 250 MG TAB PO SCH (14:07)
[2024-11-05 17:12] VITALS: BP 126/59; TEMP 98.6; O2SAT 98
[2024-11-05] MEDS: CLOTRIMAZOLE 1% TOPICAL CREAM 30 GM TOP SCH (20:22)
[2024-11-05] MEDS: busPIRone 5 MG TAB PO SCH (20:22)
[2024-11-05] MEDS: PRAZOSIN 1 MG CAP PO SCH (20:22)
[2024-11-06] MEDS: traZODone 50 MG TAB PO PRN (00:44)
[2024-11-06 07:46] LABS: CHOLESTEROL LEVEL 122.0 MG/DL (<200); CHOLESTEROL RISK RATIO 4.8 (<5); LDL CHOLESTEROL 69.0 MG/DL (<100); NON-HDL-C 96.6 MG/DL; TRIGLYCERIDES LEVEL 138.0 MG/DL (<150)
[2024-11-06 09:45] VITALS: BP 110/64
[2024-11-06] MEDS ORDERED: FLUO-365 PO (10:31)
[2024-11-06] MEDS ORDERED: BUSP5TA PO (10:31)
[2024-11-06] MEDS ORDERED: DIVA-65 PO (10:31)
[2024-11-06 11:00] VITALS: BP 112/56; TEMP 97.8; O2SAT 96
== END 2024-11-06 13:20 | disposition home or self-care (01) | DRG 751 ==
LOC: M ED 20:12 → M ED INP 23:45 → M PSY 11-05 05:35
PROVIDERS: ADMIT Student in an Organized Health Care Education/Training Program; ATTEND Psychiatry & Neurology Psychiatry
DX: F33.9 Major depressive disorder, recurrent, unspecified (principal); F79 Unspecified intellectual disabilities; I10 Essential (primary) hypertension; G80.8 Other cerebral palsy; G47.33 Obstructive sleep apnea (adult) (pediatric); R32 Unspecified urinary incontinence; R26.89 Other abnormalities of gait and mobility; Z63.0 Problems in relationship with spouse or partner; Z79.899 Other long term (current) drug therapy; Z88.5 Allergy status to narcotic agent; Z88.8 Allergy status to other drugs, medicaments and biological substances; Z87.820 Personal history of traumatic brain injury

== ENCOUNTER → 2024-12-11 | Outpatient (CLI) | payer MEDICAID, OTHER ==
[~2024-12-11] MED LIST changes: +BUSP5TA PO; +D 101000 PO; +GUAI100S51 PO; +LISI30TA4 PO; +LOTR1CRE12 TOP; +TRIPOIN9 TOP
== END ==
LOC: M RAD 16:38
PROVIDERS: ATTEND Neurological Surgery
DX: G91.9 Hydrocephalus, unspecified (principal)

== ENCOUNTER → 2025-01-21 | Outpatient (CLI) | payer MEDICAID ==
[2025-01-21 10:02] LABS: VALPROIC ACID (DEPAKOTE) 95.3 UG/ML (50.0-100.0)
[2025-01-21 10:04] LABS: ALT/SGPT 22 U/L (7.0-40); AST/SGOT 16 U/L (<34); CALCIUM LEVEL 9.5 MG/DL (8.5-10.1); CARBON DIOXIDE LEVEL 29 MMOL/L (20-31); CHLORIDE LEVEL 104 MMOL/L (98-107); CHOLESTEROL LEVEL 120 MG/DL (<200); CHOLESTEROL RISK RATIO 4.28 (<5); CREATININE FOR GFR 1.01 MG/DL (0.70-1.30); GLOMERULAR FILTRATION RATE > 90.0 (>60); LDL CHOLESTEROL 68.4 MG/DL (<100); NON-HDL-C 92.0 MG/DL; PHOSPHORUS LEVEL 3.6 MG/DL (2.5-4.9); POTASSIUM SERUM 4.5 MMOL/L (3.5-5.1); SODIUM LEVEL 141 MMOL/L (136-145); TRIGLYCERIDES LEVEL 118 MG/DL (<150)
[2025-01-21 10:06] LABS: FREE T4 1.28 NG/DL (0.89-1.76)
[2025-01-21 10:11] LABS: ESTIMATED AVERAGE GLUCOSE 94.0 MG/DL (60-110)
[2025-01-24 17:07] LABS: RISPERIDONE1 9.6 ng/ml (Not Estab.); RISPERIDONE2 11.5 ng/ml (Not Estab.); RISPERIDONE3 21.1 ng/ml (10.0-120.0)
== END ==
LOC: M LAB 09:01
PROVIDERS: ATTEND Student in an Organized Health Care Education/Training Program
DX: Z00.00 Encounter for general adult medical examination without abnormal findings (principal)
CPT/HCPCS: 36415; 80061; 80069; 80076; 80164; 83036; 84439; 84443; 84591; G0480

== ENCOUNTER → 2025-02-07 | Outpatient (REF) | payer MEDICAID ==
[~2025-02-07] MED LIST changes: -PROZ20CA12 PO; +PROZ20CA25 PO
== END ==
LOC: M SFHCPLAZ 17:04
PROVIDERS: ATTEND Student in an Organized Health Care Education/Training Program
DX: R05.9 Cough, unspecified (principal)

== ENCOUNTER → 2025-02-08 | Outpatient (CLI) | payer MEDICAID ==
[~2025-02-08] MED LIST changes: +PROZ20CA12 PO; -PROZ20CA25 PO
[2025-02-08 15:13] LABS: PLATELET COUNT, AUTOMATED 208 10^3/uL (150-450)
== END ==
LOC: M RAD 14:29
PROVIDERS: ATTEND Student in an Organized Health Care Education/Training Program
DX: R05.9 Cough, unspecified (principal)